=== PATIENT | female | born 1940 | race Caucasian/White ===

== ENCOUNTER 2017-02-26 01:40 | Observation (INO) | payer OTHER, BC ==
[2017-02-26] VITALS (7 sets, daily range): BP systolic 147–186; BP diastolic 72–83
[~2017-02-26] VITALS: Ht 157.5 cm; Wt 84.5 kg
[~2017-02-26 01:40] MED LIST: ALTACE10 MG PO; ASPIR-TRIN325 M1 PO; CHLORDIAZEPOXI1 EACH PO; CIPRO500 MG PO; CLARINEX5 MG PO; INDERAL LA120 MG PO; LIBRAX CAPSULE1 EACH PO; LO-DOSE ASPIRIN81 M2 PO; MACROBID100 MG PO; METFORMIN HCL500 MG PO; MYRBETRIQ50 MG PO; NEXIUM40 MG PO; NITROFURANTOIN100 M3 PO; PROPRANOLOL HCL20 MG PO; PYRIDIUM200 MG PO; RAMIPRIL1.25 MG PO; RAMIPRIL5 MG PO; SEROQUEL100 MG PO; SERTRALINE HCL100 MG PO; SERTRALINE HCL50 MG PO; SIMVASTATIN40 MG PO; SYNTHROID88 MCG PO; TAMIFLU75 MG PO; VESICARE5 MG PO; VYTORIN 10-401 EACH PO; ZOLPIDEM TARTRA10 MG PO
[2017-02-26 02:48] LABS: EOSINOPHIL (%) 2.3 % (0-5); EOSINOPHIL COUNT 0.1 K/uL (0-0.3); HEMATOCRIT 35.5 % (36.0-46.0); IMMATURE GRANULOCYTE (%) 0.4 % (0.0-0.7); INSTRUMENT ABS NEUTROPHIL CT 2.7 K/uL; LYMPHOCYTE COUNT 1.9 K/uL (1.0-2.8); MCH 22.3 PG (29.0-34.0); MCHC 29.3 G/DL (30.0-36.0); MEAN PLAT.VOLUME 11.8 uM^3 (9.5-12.4); MONOCYTE (%) 8.8 % (3-12); MONOCYTE COUNT 0.5 K/uL (0-0.8); NEUTROPHIL COUNT 2.7 K/uL (1.8-6.4); PLATELET COUNT 163 K/uL (156-360); RBC DIS.WIDTH-CV 18.3 % (11.8-14.6); RBC DIS.WIDTH-SD 50.3 % (39-53); RED BLOOD COUNT 4.67 M/uL (3.80-5.20); WHITE BLOOD COUNT 5.2 K/uL (4.1-10.2)
[2017-02-26 02:57] LABS: CHLORIDE 105 mEq/L (99-109); POTASSIUM 3.5 mEq/L (3.7-5.4); SODIUM 144 mEq/L (136-147)
[2017-02-26 02:59] LABS: GLUCOSE 105 mg/dL (70-99)
[2017-02-26 03:00] LABS: ANION GAP 13 MEQ/L (2-14)
[2017-02-26 03:02] LABS: GFR ESTIMATE (CALCULATED) > 59 mL/min/; INTER. NORMALIZED RATIO 1.1; PROTHROMBIN TIME 10.9 (9.2-11.2); PTT 26.7 (25-32)
[2017-02-26 03:03] LABS: UREA NITROGEN (BUN) 9 mg/dL (9-23)
[2017-02-26 03:09] LABS: TROP-I INTERPRETATION NEGATIVE; TROPONIN-I < 0.01 ng/mL (0.0-0.30)
[2017-02-26 03:25] LABS: ADD MIUA? YES; BILIRUBIN NEGATIVE; BLOOD SMALL; COLOR YELLOW ((YELLOW)); GLUCOSE (STRIP) NEGATIVE; KETONES NEGATIVE; LEUKOCYTES LARGE; NITRITE NEGATIVE; PROTEIN (STRIP) NEGATIVE; SPECIFIC GRAVITY 1.004 (1.000-1.030); UROBILINOGEN 0.2 MG/DL (0.2-1.0)
[2017-02-26 03:43] LABS: EPITHELIAL CELLS RARE /HPF; MUCUS NONE SEEN /LPF; RED BLOOD CELLS 0-5 /HPF (0-5); WHITE BLOOD CELLS TNTC /HPF (0-5)
[2017-02-26 03:44] LABS: BACTERIA 2+ /HPF; CASTS NONE SEEN /LPF; CRYSTALS NONE SEEN; UCUL ADDED? YES
[2017-02-26 04:11] LABS: HDL CHOLESTEROL 57 MG/DL (Desirable>=50); LDL CHOLESTEROL 93 mg/dL (Desirable<100); NON-HDL CHOLESTEROL 130 mg/dL (Desirable<160); SAMPLE HEMOLYSIS CHECK 0; SAMPLE ICTERIC CHECK 0; SAMPLE LIPEMIA CHECK 0; TOTAL CHOLESTEROL 187 mg/dL (Desirable<200); TRIGLYCERIDES 185 MG/DL (Normal: <150)
[2017-02-26] MEDS ORDERED: NORVASC10 MG PO (06:18)
[2017-02-26] MEDS ORDERED: LASIX20 MG PO ×2 (06:19→06:20)
[2017-02-26] MEDS ORDERED: PROAIR HFA8.5 GM IH (06:22)
[2017-02-26 07:27] LABS: Estimated Average Glucose 128 mg/dL (70-123); HEMOGLOBIN A1c (GLYCOHEMOGLOB) 6.1 % HGB (Below 5.7)
[2017-02-26 09:22] LABS: POINT-OF-CARE METER ID UU14162513
[2017-02-26] MEDS ORDERED: MACROBID100 MG PO (11:59)
[2017-02-26] MEDS ORDERED: AZO CRANBERRY250 MG PO (12:00)
[2017-02-26] MEDS ORDERED: NIZORAL 2% CREA15 GM TP (12:00)
[2017-02-26 13:54] LABS: POINT-OF-CARE METER ID UU13113831
[2017-02-26 17:59] LABS: POINT-OF-CARE METER ID UU14162513
[2017-02-26 21:35] LABS: POINT-OF-CARE METER ID UU14162513
[2017-02-27 00:08] VITALS: BP 148/65
[2017-02-27 04:39] VITALS: BP 151/67
[2017-02-27 05:40] LABS: EOSINOPHIL (%) 2.8 % (0-5); EOSINOPHIL COUNT 0.1 K/uL (0-0.3); HEMATOCRIT 30.7 % (36.0-46.0); INSTRUMENT ABS NEUTROPHIL CT 1.3 K/uL; LYMPHOCYTE COUNT 1.5 K/uL (1.0-2.8); MCH 22.9 PG (29.0-34.0); MCHC 29.6 G/DL (30.0-36.0); MCV 77.1 FL (83-99); MEAN PLAT.VOLUME 10.9 uM^3 (9.5-12.4); MONOCYTE (%) 9.8 % (3-12); MONOCYTE COUNT 0.3 K/uL (0-0.8); NEUTROPHIL (%) 40.7 % (45-76); NEUTROPHIL COUNT 1.3 K/uL (1.8-6.4); PLATELET COUNT 127 K/uL (156-360); RBC DIS.WIDTH-CV 18.4 % (11.8-14.6); RBC DIS.WIDTH-SD 51.1 % (39-53); RED BLOOD COUNT 3.98 M/uL (3.80-5.20)
[2017-02-27 05:41] LABS: WHITE BLOOD COUNT 3.2 K/uL (4.1-10.2)
[2017-02-27 06:04] LABS: ANION GAP 8 MEQ/L (2-14); CHLORIDE 107 MEQ/L (99-109); GFR ESTIMATE (CALCULATED) > 59 mL/min/; GLUCOSE 101 mg/dL (70-99); POTASSIUM 3.7 MEQ/L (3.7-5.4); SAMPLE HEMOLYSIS CHECK 0; SAMPLE ICTERIC CHECK 0; SAMPLE LIPEMIA CHECK 0; SODIUM 144 MEQ/L (136-147); UREA NITROGEN (BUN) 12 mg/dL (9-23)
[2017-02-27 08:32] LABS: POINT-OF-CARE METER ID UU13113831
[2017-02-27 09:30] VITALS: BP 149/67
[2017-02-27 12:00] VITALS: BP 166/72
[2017-02-27 13:48] LABS: POINT-OF-CARE METER ID UU14162513
[2017-02-27] MEDS ORDERED: KEFLEX500 MG PO (14:42)
== END 2017-02-27 17:20 | disposition home or self-care (01) ==
LOC: EME 01:40 → 5WEST 05:11 → EDOF 05:11 → 5WEST 07:11
PROVIDERS: Emergency Medicine; Hospitalist; Physician Assistant Medical
DX: R55 Syncope and collapse (principal); N39.0 Urinary tract infection, site not specified; E11.9 Type 2 diabetes mellitus without complications; I10 Essential (primary) hypertension; E78.5 Hyperlipidemia, unspecified; F41.9 Anxiety disorder, unspecified; S00.03XA Contusion of scalp, initial encounter; W19.XXXA Unspecified fall, initial encounter; Y92.002 Bathroom of unspecified non-institutional (private) residence as the place of occurrence of the external cause; S06.0X9A Concussion with loss of consciousness of unspecified duration, initial encounter; E03.9 Hypothyroidism, unspecified; K21.9 Gastro-esophageal reflux disease without esophagitis; R32 Unspecified urinary incontinence; Z87.891 Personal history of nicotine dependence; I51.7 Cardiomegaly; F32.9 Major depressive disorder, single episode, unspecified
CPT/HCPCS: 70450; 71010; 73090; 73130; 80048; 80061; 81003; 82948; 83036; 84484; 85025; 85610; 85730; 87077; 87086; 87186; 93005; 93306; 99202; 99281; 99285; G0378; J0696; J1644; J7030; J7050

== ENCOUNTER 2017-07-27 10:31 | Emergency (ER) | payer OTHER, BC ==
[~2017-07-27] VITALS: Ht 157.5 cm; Wt 87.2 kg
[~2017-07-27 10:31] MED LIST changes: +AZO CRANBERRY250 MG PO; +KEFLEX500 MG PO; +LASIX20 MG PO; +NIZORAL 2% CREA15 GM TP; +NORVASC10 MG PO; +PROAIR HFA8.5 GM IH
[2017-07-27 11:44] LABS: HEMATOCRIT 32.5 % (36.0-46.0); MCH 22.6 PG (29.0-34.0); MCHC 29.5 G/DL (30.0-36.0); MCV 76.7 FL (83-99); MEAN PLAT.VOLUME 10.6 uM^3 (9.5-12.4); PLATELET COUNT 136 K/uL (156-360); RBC DIS.WIDTH-CV 16.9 % (11.8-14.6); RBC DIS.WIDTH-SD 46.9 % (39-53); RED BLOOD COUNT 4.24 M/uL (3.80-5.20); WHITE BLOOD COUNT 4.1 K/uL (4.1-10.2)
[2017-07-27 11:58] LABS: CHLORIDE 108 mEq/L (99-109); POTASSIUM 4.1 mEq/L (3.7-5.4); SODIUM 140 mEq/L (136-147)
[2017-07-27 11:59] LABS: GLUCOSE 109 mg/dL (70-99)
[2017-07-27 12:01] LABS: ANION GAP 5 MEQ/L (2-14)
[2017-07-27 12:03] LABS: GFR ESTIMATE (CALCULATED) > 59 mL/min/
[2017-07-27 12:04] LABS: UREA NITROGEN (BUN) 12 mg/dL (9-23)
[2017-07-27] MEDS ORDERED: AUGMENTIN875 MG PO (14:30)
[2017-07-27 15:07] VITALS: BP 194/53
== END 2017-07-27 15:07 | disposition home or self-care (01) ==
LOC: EME 10:31
PROVIDERS: Emergency Medicine
DX: L72.3 Sebaceous cyst (principal); L08.89 Other specified local infections of the skin and subcutaneous tissue; I88.8 Other nonspecific lymphadenitis
CPT/HCPCS: 70491; 80048; 85027; 99281; 99283

== ENCOUNTER 2017-08-25 19:18 | Emergency (ER) | payer OTHER, BC ==
[~2017-08-25] VITALS: Ht 157.5 cm; Wt 87.8 kg
[~2017-08-25 19:18] MED LIST changes: +AUGMENTIN875 MG PO
[2017-08-25 20:21] LABS: HEMATOCRIT 32.8 % (36.0-46.0); MCH 22.6 PG (29.0-34.0); MCHC 29.9 G/DL (30.0-36.0); MCV 75.8 FL (83-99); MEAN PLAT.VOLUME 11.3 uM^3 (9.5-12.4); RBC DIS.WIDTH-CV 18.2 % (11.8-14.6); RBC DIS.WIDTH-SD 49.1 % (39-53); RED BLOOD COUNT 4.33 M/uL (3.80-5.20); WHITE BLOOD COUNT 7.3 K/uL (4.1-10.2)
[2017-08-25 20:24] LABS: PLATELET COUNT 197 K/uL (156-360)
[2017-08-25 20:30] LABS: CHLORIDE 103 mEq/L (99-109); POTASSIUM 3.8 mEq/L (3.7-5.4); SODIUM 139 mEq/L (136-147)
[2017-08-25 20:32] LABS: GLUCOSE 99 mg/dL (70-99)
[2017-08-25 20:33] LABS: ANION GAP 12 MEQ/L (2-14)
[2017-08-25 20:34] LABS: TOTAL BILIRUBIN 0.3 mg/dL (0.0-1.0)
[2017-08-25 20:35] LABS: ALKALINE PHOSPHATASE 89 IU/L (3-129)
[2017-08-25 20:36] LABS: GFR ESTIMATE (CALCULATED) > 59 mL/min/
[2017-08-25 20:37] LABS: UREA NITROGEN (BUN) 13 mg/dL (9-23)
[2017-08-25 22:18] VITALS: BP 167/87
[2017-08-27] MEDS ORDERED: LO-DOSE ASPIRIN81 M2 PO (16:51)
[2017-08-27] MEDS ORDERED: NYSTATIN15 GM TP (16:55)
[2017-08-27] MEDS ORDERED: BACTRIM,SEPT1 TABLET PO (16:56)
[2017-08-27] MEDS ORDERED: RAMIPRIL10 MG PO (16:57)
[2017-08-27] MEDS ORDERED: FUROSEMIDE20 MG PO (16:58)
[2017-08-27] MEDS ORDERED: AMLODIPINE BESY10 MG PO (17:00)
[2017-08-29] MEDS ORDERED: NORCO 5/3251 TABLET PO (11:58)
== END 2017-08-25 22:19 | disposition home or self-care (01) ==
LOC: EME → EDBD 19:18 → EME 19:18
PROVIDERS: Emergency Medicine
DX: S06.0X0A Concussion without loss of consciousness, initial encounter (principal); S30.1XXA Contusion of abdominal wall, initial encounter; V49.40XA Driver injured in collision with unspecified motor vehicles in traffic accident, initial encounter; Y92.410 Unspecified street and highway as the place of occurrence of the external cause; K21.9 Gastro-esophageal reflux disease without esophagitis; I10 Essential (primary) hypertension; E78.5 Hyperlipidemia, unspecified; E11.9 Type 2 diabetes mellitus without complications; E03.9 Hypothyroidism, unspecified; F41.9 Anxiety disorder, unspecified; F32.9 Major depressive disorder, single episode, unspecified; Z79.84 Long term (current) use of oral hypoglycemic drugs
CPT/HCPCS: 70450; 71010; 72125; 72170; 74177; 80053; 85027; 99281; 99285; J2270; J2405

== ENCOUNTER 2018-02-04 16:03 | Emergency (ER) | payer OTHER, BC ==
[~2018-02-04] VITALS: Ht 157.5 cm; Wt 80.5 kg
[~2018-02-04 16:03] MED LIST changes: +AMLODIPINE BESY10 MG PO; +BACTRIM,SEPT1 TABLET PO; +FUROSEMIDE20 MG PO; +NORCO 5/3251 TABLET PO; +NYSTATIN15 GM TP; +RAMIPRIL10 MG PO
[2018-02-04 16:44] LABS: HEMATOCRIT 38.5 % (36.0-46.0); HEMOGLOBIN 12.5 G/DL (11.9-15.5); MCH 27.8 PG (29.0-34.0); MCHC 32.5 G/DL (30.0-36.0); MCV 85.7 FL (83-99); PLATELET COUNT 120 K/uL (156-360); RBC DIS.WIDTH-CV 15.9 % (11.8-14.6); RED BLOOD COUNT 4.49 M/uL (3.80-5.20); WHITE BLOOD COUNT 5.2 K/uL (4.1-10.2)
[2018-02-04 16:49] LABS: APPEARANCE SL.HAZY ((CLEAR)); BILIRUBIN NEGATIVE; BLOOD SMALL; COLOR YELLOW ((YELLOW)); GLUCOSE (STRIP) NEGATIVE; KETONES NEGATIVE; LEUKOCYTES LARGE; NITRITE NEGATIVE; PROTEIN (STRIP) NEGATIVE; UROBILINOGEN 0.2 MG/DL (0.2-1.0)
[2018-02-04 16:54] LABS: CHLORIDE 103 mEq/L (99-109); POTASSIUM 3.8 mEq/L (3.7-5.4); SODIUM 142 mEq/L (136-147)
[2018-02-04 16:55] LABS: GLUCOSE 118 mg/dL (70-99)
[2018-02-04 16:59] LABS: CREATININE 0.7 mg/dL (0.6-1.3); GFR ESTIMATE (CALCULATED) > 59 mL/min/
[2018-02-04 17:00] LABS: UREA NITROGEN (BUN) 12 mg/dL (9-23)
[2018-02-04 17:14] LABS: RED BLOOD CELLS RARE /HPF (0-5)
[2018-02-04 17:15] LABS: WHITE BLOOD CELLS TNTC /HPF (0-5)
[2018-02-04 17:16] LABS: BACTERIA 1+ /HPF; EPITHELIAL CELLS NONE SEEN /HPF; MUCUS RARE /LPF; UCUL ADDED? YES
[2018-02-04] MEDS ORDERED: LEVAQUIN750 MG PO (19:17)
[2018-02-04 19:39] VITALS: BP 157/74
== END 2018-02-04 19:41 | disposition home or self-care (01) ==
LOC: EME 16:03
PROVIDERS: Emergency Medicine Emergency Medical Services
DX: N10 Acute pyelonephritis (principal); S06.0X0A Concussion without loss of consciousness, initial encounter; S00.03XA Contusion of scalp, initial encounter; S40.021A Contusion of right upper arm, initial encounter; W08.XXXA Fall from other furniture, initial encounter; Y92.531 Health care provider office as the place of occurrence of the external cause; I10 Essential (primary) hypertension; E78.5 Hyperlipidemia, unspecified; E11.9 Type 2 diabetes mellitus without complications; E03.9 Hypothyroidism, unspecified; K21.9 Gastro-esophageal reflux disease without esophagitis; F41.9 Anxiety disorder, unspecified; F32.9 Major depressive disorder, single episode, unspecified; Z79.84 Long term (current) use of oral hypoglycemic drugs; Z79.82 Long term (current) use of aspirin; Z88.2 Allergy status to sulfonamides
CPT/HCPCS: 70450; 80048; 81003; 85027; 87077; 87086; 87186; 93005; 99281; 99285

== ENCOUNTER → 2018-05-28 | Outpatient (CLI) | payer OTHER, BC ==
[~2018-05-28] VITALS: Ht 154.9 cm; Wt 82.1 kg
[~2018-05-28] MED LIST changes: +ATIVAN0.5 MG PO; +BENTYL10 MG PO; +INDERAL20 MG PO; +IRON325 M1 PO; +LEVAQUIN750 MG PO; +LIBRAX, CLI1 CAPSULE PO; +MULTIPLE VITAM1 EACH PO; +NYSTATIN-TRIAMC15 GM TP
== END | disposition home or self-care (01) ==
LOC: AMB 05-07 12:00 → OPR 05-07 14:15 → AMB 05-21 08:00 → OPR 05-21 10:15 → AMB 07:47
PROVIDERS: Internal Medicine Gastroenterology
PROC: 0F9G8ZX Drainage of Pancreas, Via Natural or Artificial Opening Endoscopic, Diagnostic (ICD-10-PCS; principal; 2018-05-28)
DX: K86.2 Cyst of pancreas (principal); D73.4 Cyst of spleen; K76.0 Fatty (change of) liver, not elsewhere classified; E11.9 Type 2 diabetes mellitus without complications; Z79.84 Long term (current) use of oral hypoglycemic drugs; M19.90 Unspecified osteoarthritis, unspecified site; E78.2 Mixed hyperlipidemia; I10 Essential (primary) hypertension; E03.9 Hypothyroidism, unspecified; Z87.891 Personal history of nicotine dependence; Z79.82 Long term (current) use of aspirin
CPT/HCPCS: 82948; 88160; 94640; J0744; J1100; J2405; J2710; J3010; J7643